=== PATIENT | female | born 1975 | race Caucasian/White ===

== ENCOUNTER → 2017-02-04 | Outpatient (CLI) | payer MEDICAID ==
[~2017-02-04] MED LIST: AC325T PO; DVL500TSR PO; HYDR-3583 PO; IBUP-15 PO; LAMO150T2 PO; LRT10T PO; MULT1CAP27 PO; OLN5T PO
--- NOTE | 2017-02-04 10:22 | Diagnostic Imaging Report ---
EXAMINATION: Left lower extremity duplex venous ultrasound. TECHNIQUE: DVT protocol. Multiple sonographic images with color Doppler and waveform interrogation were performed of the left lower extremity veins with compression and augmentation maneuvers. INDICATION: Left leg swelling. FINDINGS: The left lower extremity veins from the groin to below the knee veins were examined with normal color-flow, compressibility and waveform demonstrated. The great saphenous vein is patent. IMPRESSION: No evidence of DVT in the left lower extremity. Dictated by: Dictated on workstation # [id number]
== END ==
LOC: RAD 09:08
PROVIDERS: ATTEND Family Medicine
DX: M79.89 Other specified soft tissue disorders (principal)

== ENCOUNTER → 2018-01-07 | Outpatient (CLI) | payer MEDICAID ==
--- NOTE | 2018-01-07 13:25 | Diagnostic Imaging Report ---
INDICATION: Low back injury from a fall. AP and lateral views of lumbar spine show normal vertebral body height and alignment. Disc spaces are normal. IMPRESSION: Negative lumbar spine. Dictated by: Dictated on workstation # [id number]
== END ==
LOC: RAD 10:39
PROVIDERS: ATTEND Family Medicine
DX: S39.92XA Unspecified injury of lower back, initial encounter (principal); W19.XXXA Unspecified fall, initial encounter
CPT/HCPCS: 72100